=== PATIENT | male | born 1950 | race Caucasian/White ===

== ENCOUNTER 2022-06-17 20:59 | Emergency (ER) | payer OTHER, MEDICARE | END 2022-06-17 22:55 | disposition home or self-care (01) | LOC: ERS 20:59 | DX: S00.91XA Abrasion of unspecified part of head, initial encounter (principal); S50.312A Abrasion of left elbow, initial encounter; E78.00 Pure hypercholesterolemia, unspecified; W01.198A Fall on same level from slipping, tripping and stumbling with subsequent striking against other object, initial encounter | CPT/HCPCS: 70450 ==